=== PATIENT | female | born 1980 | race Caucasian/White ===

== ENCOUNTER 2018-05-11 12:14 | Emergency (ER) | payer BC ==
--- NOTE | 2018-05-11 13:19 | RAD ---
HISTORY: head injury with significant headache and numbness COMPARISONS: August 02, 2011 TECHNIQUE: Multiple contiguous axial CT scans were obtained of the head without intravenous contrast. FINDINGS: HEMORRHAGE/INFARCT: There is no hemorrhage or acute infarct. MASSES/SHIFT: There is no mass or shift. 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 SULCI AND VENTRICLES: The sulci and ventricles are normal in size and position for the patient's stated age. CEREBRUM: There are no focal parenchymal abnormalities. BRAINSTEM: There are no focal parenchymal abnormalities. CEREBELLUM: There are no focal parenchymal abnormalities. VESSELS: The vessels are grossly normal. PARANASAL SINUSES: The paranasal sinuses are clear. ORBITS: The orbits are unremarkable. BONES AND SOFT TISSUE: No bone or soft tissue abnormalities are noted. OTHER: None IMPRESSION: NO ACUTE INTRACRANIAL PATHOLOGY.
--- NOTE | 2018-05-11 15:21 | ED ---
Rosi Stevens Jade, scribed for Margarito Christianson MD on 05/11/18 at 1437 . Head Injury - HPI Summary HPI Summary: Pt is a 37 y/o female who presents to the ED s/p head injury. She states at 9: 30 today flags slid off a sign and fell on her head. Pt complains of headache, left facial numbness (still present but better), and nausea. She states at one point her left pupil was larger than her right. Pt denies any CP, SOB, or abdominal pain. She is currently not on allergy medications. - History Of Current Complaint Chief Complaint: EDHeadInjury Stated Complaint: HEAD INJURY Time Seen by Provider: 05/11/18 14:26 Hx Obtained From: Patient Mechanism Of Injury: Direct Blow - Flags fell on her head Onset/Duration: Started Hours Ago - 9:30 Onset of Pain: Post Accident Severity Initially: Moderate Pain Intensity: 4 Pain Scale Used: 0-10 Numeric Associated Signs And Symptoms: Nausea, Numbness - Facial, Headache - Allergies/Home Medications Allergies/Adverse Reactions: Allergies Allergy/AdvReac Type Severity Reaction Status Date / Time No Known Allergies Allergy Verified 05/23/13 09:47 PMH/Surg Hx/FS Hx/Imm Hx Endocrine/Hematology History: Denies: Hx Anticoagulant Therapy, Hx Diabetes, Hx Thyroid Disease Cardiovascular History: Denies: Hx Hypertension, Hx Pacemaker/ICD Respiratory History: Denies: Hx Asthma, Hx Chronic Obstructive Pulmonary Disease (COPD) History: Denies: Hx Renal Disease Musculoskeletal History: Reports: Hx Arthritis, Hx Rheumatoid Arthritis Sensory History: Reports: Hx Contacts or Glasses - GLASSES Opthamlomology History: Reports: Hx Contacts or Glasses - GLASSES Neurological History: Denies: Hx Dementia, Hx Seizures Psychiatric History: Denies: Hx Substance Abuse - Surgical History Surgery Procedure, Year, and Place: 2006 Hx Anesthesia Reactions: No - Immunization History Date of Tetanus Vaccine: nka Infectious Disease History: No Infectious Disease History: Denies: Hx Clostridium Difficile, Hx Hepatitis, Hx Human Immunodeficiency Virus (HIV), Hx Shingles, Hx Tuberculosis, Traveled Outside the [place] in Last 30 Days - Family History Known Family History: Positive: Hypertension - Social History Substance Use Type: Reports: None Review of Systems Negative: Chest Pain Negative: Shortness Of Breath Positive: Nausea. Negative: Abdominal Pain Positive: Headache, Numbness - In front of left ear All Other Systems Reviewed And Are Negative: Yes Physical Exam - Summary Physical Exam Summary: Appearance: Well appearing, no pain distress Skin: warm, dry, reflects adequate perfusion Head/face: Soft hematoma over the left occipital parietal area. No redness. Eyes: EOMI, MICHELLE ENT: normal. No hemotympanum. Neck: supple, non-tender Respiratory: CTA, breath sounds present Cardiovascular: RRR, pulses symmetrical Abdomen: non-tender, soft Bowel Sounds: present Musculoskeletal: normal, strength/ROM intact Neuro: motor intact, A&Ox3. Dull sensation to light touch just in front of left ear. Triage Information Reviewed: Yes Vital Signs On Initial Exam: Initial Vitals Temp Pulse Resp BP Pulse Ox 98.3 F 102 20 139/94 97 05/11/18 12:20 05/11/18 12:20 05/11/18 12:20 05/11/18 12:20 05/11/18 12:20 Vital Signs Reviewed: Yes Diagnostics - Vital Signs Vital Signs Temp Pulse Resp BP Pulse Ox 05/11/18 13:42 97.2 F 87 18 130/92 98 05/11/18 12:20 98.3 F 102 20 139/94 97 - Laboratory Lab Statement: Any lab studies that have been ordered have been reviewed, and results considered in the medical decision making process. - CT 12:33 CT Interpretation: No Acute Changes - Brain CT: NO ACUTE INTRACRANIAL PATHOLOGY. ED physician reviewed radiology report. CT Interpretation Completed By: Radiologist Head Injury Course/Dx Course Of Treatment: Patient with anisocoria and occipital headache after being struck by a falling carried flag. Some neurologic symptoms early on but now better. Head CT is negative. Likely mild concussion. Again neurologically normal at present. Discharge with symptom control and follow-up with primary care physician. - Diagnoses Differential Diagnosis/HQI/PQRI: Concussion Without LOC, Intracranial Bleed Provider Diagnoses: Concussion, Closed head injury Discharge - Sign-Out/Discharge Documenting (check all that apply): Discharge/Admit/Transfer - Discharge - Discharge Plan Condition: Good Disposition: HOME Prescriptions: Cyclobenzaprine (NF) [Cyclobenzaprine 5 MG (NF)] 5 mg PO TID PRN #6 tab PRN Reason: muscle pain Ondansetron [Zofran Odt] 4 mg PO TID PRN #12 tab.rapdis PRN Reason: Nausea Patient Education Materials: Concussion (ED) Referrals: Geovani TRIANA,Mitul Uribe [Primary Care Provider] - Additional Instructions: Take your prescribed medications for pain/discomfort as prescribed. Quiet, darkened room. No fine print reading. Return with increased headache, vomiting , new symptoms or other concerns. Off work for 2 days. - Billing Disposition and Condition Condition: GOOD Disposition: Home The documentation as recorded by the Rosi zavala Jade accurately reflects the service I personally performed and the decisions made by me, Margarito Christianson MD.
[2018-05-11 15:22] VITALS: BP 133/89
== END 2018-05-11 15:21 | disposition home or self-care (01) ==
LOC: ED 12:14
DX: S09.90XA Unspecified injury of head, initial encounter (principal); S06.0X9A Concussion with loss of consciousness of unspecified duration, initial encounter; W22.8XXA Striking against or struck by other objects, initial encounter; Y92.9 Unspecified place or not applicable; R11.0 Nausea; R51 Headache
CPT/HCPCS: 70450; 99282

== ENCOUNTER 2019-02-17 15:26 | Emergency (ER) | payer BC ==
[2019-02-17 15:45] VITALS: BP 132/78
--- NOTE | 2019-02-17 16:05 | UC ---
Knee Pain HPI - HPI Summary HPI Summary: 38-year-old female comes in with a chief complaint of left knee pain. Started about 3 weeks ago. The pain is right underneath the patella. It's worse when she is laying on her side and as she moves her knee back to midline while extending her knee she feels a click and a pop and has pain. If she keeps it in straight alignment she does not get this sensation. She has been able to weight-bear. She is and has not been able take any nonsteroidal inflammatories. Patient does not get any locking of the knee there is no swelling. - History of Current Complaint Chief Complaint: UCLowerExtremity Stated Complaint: KNEE PAIN Time Seen by Provider: 02/17/19 15:51 Pain Intensity: 7 - Allergies/Home Medications Allergies/Adverse Reactions: Allergies Allergy/AdvReac Type Severity Reaction Status Date / Time No Known Allergies Allergy Verified 02/17/19 15:44 Home Medications: Home Medications Cholecalciferol (Vitamin D3) [Vitamin D3] 2,000 unit PO DAILY 02/17/19 [History Confirmed 02/17/19] Levothyroxine Sodium 25 mcg PO DAILY 02/17/19 [History Confirmed 02/17/19] Neltrexone 3 mg PO QPM 02/17/19 [History Confirmed 02/17/19] PMH/Surg Hx/FS Hx/Imm Hx Previously Healthy: Yes Endocrine History: Hypothyroidism Other History Of: Negative For: Anticoagulant Therapy - Surgical History Surgical History: Yes Surgery Procedure, Year, and Place: 2006 - Family History Known Family History: Positive: Hypertension - Social History Alcohol Use: None Substance Use Type: None Smoking Status (MU): Never Smoked Tobacco Review of Systems All Other Systems Reviewed And Are Negative: Yes Constitutional: Positive: Negative Skin: Positive: Negative Eyes: Positive: Negative ENT: Positive: Negative Respiratory: Positive: Negative Cardiovascular: Positive: Negative Gastrointestinal: Positive: Negative Motor: Positive: Negative Neurovascular: Positive: Negative Musculoskeletal: Positive: Other: - SEE HPI Neurological: Positive: Negative Psychological: Positive: Negative Is Patient Immunocompromised?: No Physical Exam Triage Information Reviewed: Yes Appearance: Well-Appearing, No Pain Distress, Well-Nourished Vital Signs: Initial Vital Signs Temp 98.4 F 02/17/19 15:41 Pulse 90 02/17/19 15:41 Resp 18 02/17/19 15:41 BP 132/78 02/17/19 15:41 Pulse Ox 100 02/17/19 15:41 Vital Signs Reviewed: Yes Eye Exam: Normal Eyes: Positive: Conjunctiva Clear Neck exam: Normal Neck: Positive: Supple Respiratory: Positive: No respiratory distress Musculoskeletal: Positive: Other: - The left knee the left knee has full range of motion. Mildly tender when I moved the patella from side to side. No swelling. Stable to exam. Nontender elsewhere. Negative Mychal's. Neurological Exam: Normal Neurological: Positive: Alert, Muscle Tone Normal Psychological Exam: Normal Psychological: Positive: Normal Response To Family, Age Appropriate Behavior Skin Exam: Normal Knee Pain Course/Dx - Course Course Of Treatment: By history and examination the cause of the pain is most likely a patellofemoral syndrome. At this time we did not do x-rays as the patient is and there is no acute issue. Plan is to give support and strengthen. Follow-up with sports medicine. - Differential Dx/Diagnosis Provider Diagnosis: Left knee pain, Patellofemoral syndrome of left knee Discharge - Sign-Out/Discharge Documenting (check all that apply): Patient Departure All imaging exams completed and their final reports reviewed: No Studies - Discharge Plan Condition: Stable Disposition: HOME Patient Education Materials: Patellofemoral Pain Syndrome (ED), Knee Pain (ED) Referrals: Geovani TRIANA,Mitul Uribe [Primary Care Provider] - [facility] [Provider Group] Additional Instructions: FOLLOW UP WITH SPORTS MEDICINE. GET RECHECKED SOONER FOR ANY WORSENING OF YOUR CONDITION OR QUESTIONS OR CONCERNS. - Billing Disposition and Condition Condition: STABLE Disposition: Home
== END 2019-02-17 16:14 | disposition home or self-care (01) ==
LOC: UCEAST 15:26
DX: M25.562 Pain in left knee (principal); M22.2X1 Patellofemoral disorders, right knee; E03.9 Hypothyroidism, unspecified
CPT/HCPCS: 99211; G0463

== ENCOUNTER 2019-06-20 06:10 | Inpatient (IN) | payer BC ==
[~2019-06-20 06:10] MED LIST: Buffered Lidocaine 1% SYRIN* 1 ML/SYRINGE INTRADERM ONE; Famotidine IV* 10 MG/ML 2 ML (20 mg) IV ONE; Lactated Ringers 1000 ML Bag* 1,000 ML IV SCH; Sodium Citrate/Citric Acid* 15 ML UDC ONE; Sodium Citrate/Citric Acid* 15 ML UDC PO ONE; ceFOXitin 2 GM IVPREMIX* 2 GM/50 ML BAG ONE
[2019-06-20] MEDS ORDERED: fentaNYL* 50 MCG/ML 2 ML VIAL (100 MCG VIAL) ONE (07:27)
[2019-06-20] MEDS ORDERED: Morphine PF AMP (0.5MG/ML)* 5 MG/10 ML AMP ONE (07:27)
[2019-06-20] MEDS ORDERED: Naloxone* 2 MG in NS 0.9% 250 ML* 250 ML IV PRN (07:42)
[2019-06-20] MEDS ORDERED: Naloxone* 0.4 MG/ML 1 ML VIAL IV PRN ×2 (07:42→08:46)
[2019-06-20] MEDS ORDERED: Ondansetron INJ* 2 MG/ML VIAL IV PRN (07:42)
[2019-06-20] MEDS ORDERED: oxyCODONE TAB* 5 MG TAB PO PRN ×2 (07:42→08:46)
[2019-06-20] MEDS ORDERED: Phenylephrine 40 MCG/ML SYRINGE ONE (07:52)
[2019-06-20] MEDS ORDERED: Ondansetron INJ* 2 MG/ML VIAL ONE (07:52)
[2019-06-20] MEDS ORDERED: Metoclopramide IV* 5 MG/ML 2 ML VIAL ONE (08:23)
[2019-06-20] MEDS ORDERED: OXYTOCIN* 10 UNITS/ML 1 ML VIAL ONE (08:26)
[2019-06-20 08:38] LABS: Urine Benzodiazepine Screen None Detected (None Detect); Urine Opiates Screen None Detected (None Detect)
[2019-06-20] MEDS ORDERED: Acetaminophen TAB* 325 MG PO PRN ×2 (08:46→09:24)
[2019-06-20] MEDS ORDERED: HYDROmorphone INJ1* 1 MG/ML SYRINGE IV PRN (08:46)
[2019-06-20] MEDS ORDERED: oxyCODONE/Acetamin 5/325 MG* TAB PO PRN (09:24)
[2019-06-20] MEDS ORDERED: Glycerin ADULT SUPP PR PRN (09:24)
[2019-06-20] MEDS ORDERED: Witch Hazel PAD* JAR TOPICAL PRN (09:24)
[2019-06-20] MEDS ORDERED: Zolpidem TAB* 5 MG PO PRN (09:24)
[2019-06-20] MEDS ORDERED: Dibucaine 1% 28.35 GM TUBE PR PRN (09:24)
[2019-06-20] MEDS ORDERED: Oxytocin in LR* 20 UNITS/1,000 ML BAG IVPB SCH (10:00)
[2019-06-20] MEDS ORDERED: Lactated Ringers 1000 ML Bag* 1,000 ML IV SCH (10:00)
--- NOTE | 2019-06-20 10:39 | OP ---
OPERATIVE REPORT: DATE OF OPERATION: 06/20/19 DATE OF : 80 SURGEON: Mac Odell MD JEWELER APPRENTICE: Cami Rodriguez CNM ANESTHESIA: Spinal with Duramorph. PRE-OP DIAGNOSIS: Previous section and desires sterilization and desires cord blood banking . POST-OP DIAGNOSIS: Previous section and desires sterilization and desires cord blood bankin g. OPERATIVE PROCEDURE: Low-transverse section, bilateral tubal ligation, and retrieval of cor d blood for banking. COMPLICATIONS: None. FINDINGS: This is a 38-year-old 2, para 1, with a previous section who desired to r epeat and sterilization. At the time of section, she had a viable female, Apgars 9 and 9, w eight was 6 pounds 13 ounces. Both tubes and ovaries appeared normal. The ovaries did appear streak -like in appearance. DESCRIPTION OF PROCEDURE: The patient identified, procedure identified as a low- transverse C-sectio n and bilateral tubal ligation. The patient was taken to the operating room and prepped and draped i n the usual fashion in the left lateral recumbent position under spinal anesthesia. A Pfannenstiel i ncision was made through the old incision, carried down to the fat, fascia, and peritoneum. A transv erse incision was made in the lower uterine segment, extended laterally using blunt dissection. The above was delivered through the incision with ease. The cord was doubly clamped and cut, and t he was handed to the awaiting curing machine operator. Cord was collected for cord-blood banking. Once an adequate amount of cord blood was obtained, placenta delivered manually. The uterus was wiped out with a wet lap sponge. The uterine incision was then closed using 0 Polysorb in a running fashion. A second layer was used to imbricate the first layer. Good hemostasis was verified. The right fall opian tube was grasped at its fimbriated end and ligated x2 using 0 Polysorb and then excised. Same procedure was encountered in the left. During this procedure, a portion of the infundibulopelvic whe re it attached to the fimbria tore and was bleeding. Two 3-0 Polysorb were placed through the infund ibulopelvic, but the bleeding each time it was placed continued, so a window was found in the broad l igament and the whole infundibulopelvic was ligated using 0 Polysorb in a single time. Everything el se was left in situ and good hemostasis was verified at this point. The uterus was placed back into the abdominal cavity. Copious irrigation was utilized and suctioned out. Good hemostasis verified a t both the infundibulopelvic site on the left and the tubal ligation site as well as the tubal ligati on site on the right. Good hemostasis was verified. The peritoneum was then closed using 3-0 Polysor b in a running fashion. Hemostasis achieved in the subrectus layers. Fascia was then closed using 0 Polysorb in a running fashion. Good hemostasis achieved in the subcu. The space was closed us ing 3-0 Vicryl. Copious irrigation was utilized and suctioned out, and the skin was closed with 4-0 Monocryl in a subcuticular fashion. All sponge and instrument counts were correct and the patient re turned to the recovery room in stable condition. [id number]/[facility] #: [id number]
[2019-06-20] MEDS: Ketorolac INJ* 30 MG/ML 1 ML VIAL IV PRN ×2 (10:43→17:19)
[2019-06-20] MEDS: Nalbuphine* 10 MG/ML 1 ML VIAL IV PRN ×2 (10:43→23:20)
[2019-06-20] MEDS: Docusate CAP* 100 MG PO SCH ×2 (13:09→21:07)
[2019-06-20] MEDS: Simethicone TAB* 80 MG TAB.CHEW PO SCH ×3 (13:10→21:08)
[2019-06-20] MEDS: oxyCODONE/Acetamin 5/325 MG* TAB PO PRN ×2 (13:10→23:12)
[2019-06-21] MEDS: Ibuprofen TAB* 600 MG PO PRN ×4 (04:46→22:36)
[2019-06-21] MEDS: oxyCODONE/Acetamin 5/325 MG* TAB PO PRN ×5 (06:02→22:37)
[2019-06-21] MEDS: Levothyroxine TAB* 25 MCG TAB PO SCH (07:25)
[2019-06-21] MEDS: Simethicone TAB* 80 MG TAB.CHEW PO SCH ×5 (08:52→22:43)
[2019-06-21] MEDS: Docusate CAP* 100 MG PO SCH ×3 (08:52→22:36)
[2019-06-21] MEDS ORDERED: Ferrous Gluconate TAB* 324 MG TAB PO SCH (09:00)
[2019-06-21 10:37] LABS: ABS Lymphocytes 0.8 10^3/ul (1.0-4.8); ABS Monocytes 0.6 10^3/ul (0-0.8); ABS Neutrophils 9.9 10^3/ul (1.5-7.7); Eosinophil % 0.3 %; Hematocrit 33 % (35-47); Hemoglobin 11.4 g/dL (12.0-16.0); Lymphocyte % 7.2 %; Mean Corpuscular HGB Conc 34 g/dL (31-36); Mean Corpuscular Hemoglobin 32 pg (27-31); Mean Corpuscular Volume 95 fL (80-97); Mean Platelet Volume 8.8 fL (7.4-10.4); Platelet Count 199 10^3/uL (150-450); Red Blood Count 3.52 10^6 /uL (3.70-4.87); Red Cell Distribution Width 14 % (10-15); White Blood Count 11.4 10^3/uL (3.5-10.8)
[2019-06-22] MEDS: oxyCODONE/Acetamin 5/325 MG* TAB PO PRN ×5 (03:34→21:02)
[2019-06-22] MEDS: Ibuprofen TAB* 600 MG PO PRN ×3 (04:42→19:55)
[2019-06-22] MEDS: Levothyroxine TAB* 25 MCG TAB PO SCH (07:36)
[2019-06-22] MEDS: Docusate CAP* 100 MG PO SCH ×3 (09:05→19:56)
[2019-06-22] MEDS: Simethicone TAB* 80 MG TAB.CHEW PO SCH ×3 (09:05→19:56)
[2019-06-23] MEDS: Ibuprofen TAB* 600 MG PO PRN ×2 (03:49→10:23)
[2019-06-23] MEDS: Acetaminophen TAB* 325 MG PO PRN ×3 (03:49→12:53)
[2019-06-23] MEDS: Simethicone TAB* 80 MG TAB.CHEW PO SCH ×3 (07:38→12:53)
[2019-06-23 08:10] VITALS: BP 121/93
[2019-06-23] MEDS: Levothyroxine TAB* 25 MCG TAB PO SCH (08:14)
[2019-06-23] MEDS: Docusate CAP* 100 MG PO SCH (08:15)
== END 2019-06-23 13:10 | disposition home or self-care (01) | DRG 540 ==
LOC: MCHOB 06:10
PROVIDERS: ADMIT Obstetrics & Gynecology; ATTEND Obstetrics & Gynecology
PROC: 6A550ZT Pheresis of Cord Blood Stem Cells, Single (ICD-10-PCS; 2019-06-20)
PROC: 0UB50ZZ Excision of Right Fallopian Tube, Open Approach (ICD-10-PCS; 2019-06-20)
PROC: 0UT60ZZ Resection of Left Fallopian Tube, Open Approach (ICD-10-PCS; 2019-06-20)
PROC: 10D00Z1 Extraction of Products of Conception, Low, Open Approach (ICD-10-PCS; principal; 2019-06-20 07:45)
DX: O34.211 Maternal care for low transverse scar from previous cesarean delivery (principal); O99.344 Other mental disorders complicating childbirth; F41.8 Other specified anxiety disorders; O99.284 Endocrine, nutritional and metabolic diseases complicating childbirth; E03.9 Hypothyroidism, unspecified; O75.89 Other specified complications of labor and delivery; M06.9 Rheumatoid arthritis, unspecified; Z3A.39 39 weeks gestation of pregnancy; Z37.0 Single live birth; Z30.2 Encounter for sterilization
CPT/HCPCS: 36415; 80307; 85025; 88302; A9270-GY; J0694; J1885; J2300; J2405; J2590; J2765; J3010

== ENCOUNTER 2019-07-05 02:39 | Emergency (ER) | payer BC ==
--- NOTE | 2019-07-05 02:57 | ED ---
GI/ HPI - HPI Summary HPI Summary: This patient is a 38 year old female presenting to [facility] with a chief complaint of vaginal bleeding. Pt reports on 06/20. She since has had some scant vaginal bleeding. She was told to come to ED if bleeding got worse. She states she sat on the toilet at 2 hours ago and had heavier bleeding and passed a clot the size of a golf ball. Patient had an emergency with her first child 12 years ago so they elected to do it this time. She denies cramping, but reports a suprapubic burning. - History of Current Complaint Chief Complaint: EDVaginalBleeding Time Seen by Provider: 07/05/19 02:49 Stated Complaint: ABD BLEEDING FROM PER PT Hx Obtained From: Patient Onset/Duration: Started Hours Ago Pain Intensity: 1 - Allergy/Home Medications Allergies/Adverse Reactions: Allergies Allergy/AdvReac Type Severity Reaction Status Date / Time No Known Allergies Allergy Verified 07/05/19 02:47 PMH/Surg Hx/FS Hx/Imm Hx Endocrine/Hematology History: Reports: Hx Thyroid Disease - hypothyroid Denies: Hx Anticoagulant Therapy, Hx Diabetes Cardiovascular History: Denies: Hx Hypertension, Hx Pacemaker/ICD Respiratory History: Denies: Hx Asthma, Hx Chronic Obstructive Pulmonary Disease (COPD) History: Denies: Hx Renal Disease Musculoskeletal History: Reports: Hx Arthritis, Hx Rheumatoid Arthritis Sensory History: Reports: Hx Contacts or Glasses - GLASSES Opthamlomology History: Reports: Hx Contacts or Glasses - GLASSES Neurological History: Denies: Hx Dementia, Hx Seizures Psychiatric History: Denies: Hx Substance Abuse - Surgical History Surgery Procedure, Year, and Place: 2006 Hx Anesthesia Reactions: No - Immunization History Date of Tetanus Vaccine: nka Infectious Disease History: No Infectious Disease History: Denies: Hx Clostridium Difficile, Hx Hepatitis, Hx Human Immunodeficiency Virus (HIV), Hx Shingles, Hx Tuberculosis, Traveled Outside the [place] in Last 30 Days - Family History Known Family History: Positive: Hypertension - Social History Alcohol Use: None Substance Use Type: Reports: None Smoking Status (MU): Never Smoked Tobacco Review of Systems Negative: Fever Positive: Abdominal Pain - Suprapubic burning Positive: other - Vaginal bleeding All Other Systems Reviewed And Are Negative: Yes Physical Exam - Summary Physical Exam Summary: VITAL SIGNS: Reviewed. GENERAL: Patient is a well-developed and nourished FEMALE who is lying comfortable in the stretcher. Patient is not in any acute respiratory distress. HEAD AND FACE: No signs of trauma. No ecchymosis, hematomas or skull depressions. No sinus tenderness. EYES: PERRLA, EOMI x 2, No injected conjunctiva, no nystagmus. EARS: Hearing grossly intact. Ear canals and tympanic membranes are within normal limits. MOUTH: Oropharynx within normal limits. NECK: Supple, trachea is midline, no adenopathy, no JVD, no carotid bruit, no c- spine tenderness, neck with full ROM. CHEST: Symmetric, no tenderness at palpation LUNGS: Clear to auscultation bilaterally. No wheezing or crackles. CVS: Regular rate and rhythm, S1 and S2 present, no murmurs or gallops appreciated. ABDOMEN: Soft, non-tender. No signs of distention. No rebound no guarding, and no masses palpated. Bowel sounds are normal. EXTREMITIES: FROM in all major joints, no edema, no cyanosis or clubbing. NEURO: Alert and oriented x 3. No acute neurological deficits. Speech is normal and follows commands. SKIN: Dry and warm Vaginal: Plant Anatomist Kendra present. Cervix is closed posterior. Very small dark blood in the vaginal area which was removed. No active bleeding. Triage Information Reviewed: Yes Vital Signs On Initial Exam: Initial Vitals Temp Pulse Resp BP Pulse Ox 97.1 F 76 18 149/97 98 07/05/19 02:41 07/05/19 02:41 07/05/19 02:41 07/05/19 02:41 07/05/19 02:41 Vital Signs Reviewed: Yes Diagnostics - Vital Signs Vital Signs Temp Pulse Resp BP Pulse Ox 07/05/19 02:41 97.1 F 76 18 149/97 98 - Laboratory Lab Statement: Any lab studies that have been ordered have been reviewed, and results considered in the medical decision making process. GIGU Course/Dx - Course Course Of Treatment: This patient is a 38 year old female presenting to [facility] with a chief complaint of vaginal bleeding. Physical exam was unremarkable for active bleeding. She was instructed to come back for an ultrasound if she experiences active bleeding. A plan for discharge was discussed with the patient and she was agreeable with this plan. - Diagnoses Provider Diagnoses: bleeding Discharge - Sign-Out/Discharge Documenting (check all that apply): Patient Departure - Discharge Patient Received Moderate/Deep Sedation with Procedure: No - Discharge Plan Condition: Stable Disposition: HOME Patient Education Materials: Bleeding (ED) Referrals: Geovani TRIANA,Mitul Uribe [Primary Care Provider] - Additional Instructions: Return to ED with any new or worsening symptoms. - Attestation Statements Document Initiated by Scribe: Yes Documenting Scribe: Dao Peace Provider For Whom Scribe is Documenting (Include Credential): Reyna Tian MD Scribe Attestation: Dao Stevens, scribed for Reyna Tian MD on 07/05/19 at 0304. Status of Scribe Document: Ready
[2019-07-05 03:32] VITALS: BP 141/92
== END 2019-07-05 03:35 | disposition home or self-care (01) ==
LOC: ED 02:39
DX: O72.1 Other immediate postpartum hemorrhage (principal); E03.9 Hypothyroidism, unspecified; M06.9 Rheumatoid arthritis, unspecified
CPT/HCPCS: 99282